=== PATIENT | male | born 1980 ===

== ENCOUNTER 2025-03-14 06:19 | Day surgery (SDC) | payer BC, SELFPAY | END 2025-03-14 12:09 | disposition home or self-care (01) | LOC: GI 06:19 | PROVIDERS: ATTENDING PHYSICIAN Internal Medicine Gastroenterology | DX: Z12.11 Encounter for screening for malignant neoplasm of colon (principal); K64.8 Other hemorrhoids; K62.1 Rectal polyp; Z83.719 Family history of colon polyps, unspecified | CPT/HCPCS: 45380; 88305 ==